=== PATIENT | female | born 1975 | race Hispanic/Latino ===

== ENCOUNTER 2021-06-05 20:51 | Emergency (ER) | payer SELFPAY ==
[~2021-06-05 20:51] MED LIST: Iopamidol-370 76% 500 ML 1 ML ONE
[2021-06-05 22:00] LABS: Bilirubin Negative (Negative); Blood, Urine Negative (Negative); Clarity Clear (Clear); Glucose, Urine (Dipstick) Normal (Negative); Ketone, Urine Negative (Negative); Leukocyte Negative Leu/uL (Negative); Nitrite Negative (Negative); Protein, Urine (Dipstick) Negative (Neg-Trace); Specific Gravity, Urine 1.013 (1.002-1.036); Urobilinogen Normal mg/dL (Less than 2)
[2021-06-05 22:04] LABS: #Basophils 0.1 thou/uL (0.0-0.2); #Lymphocytes 1.5 thou/uL (1.20-3.40); #Monocytes 0.4 thou/uL (0.11-0.59); #Neutrophils 6.9 thou/uL (1.40-6.50); %Basophils 0.6 % (0.0-1.0); %Eosinophils 0.4 % (0.0-10.0); %Neutrophils 76.9 % (42.0-75.0); Mean Corpuscular HGB CONC 34.3 g/dL (32.0-36.0); Mean Corpuscular Hemoglobin 31.6 pg (27.0-31.0); Mean Corpuscular Volume 92.2 fL (78.0-98.0); Mean Platelet Volume 7.7 fL (7.4-10.4); Platelet Count 275 thou/uL (130-400); RBC Distribution Width 14.4 % (11.5-14.5); White Blood Cell (WBC) Count 8.9 thou/uL (4.8-10.8)
[2021-06-05 22:10] LABS: BHCG - Serum Negative (NEGATIVE); Pregs Control Background? CLEAR/WHITE (CLR/WHITE); Pregs Control Bar Appear? YES (CONTROL BAR)
[2021-06-05] MEDS ORDERED: Ondansetron PF 4 MG/2 ML Vial ONE (22:17)
[2021-06-05] MEDS ORDERED: Morphine 4 MG/ML VIAL ONE (22:17)
[2021-06-05 22:24] LABS: ALT (SGPT) 17 U/L (8-55); AST (SGOT) 24 U/L (5-34); Albumin 4.5 g/dL (3.5-5.0); Alkaline Phosphatase 63 U/L (40-110); Anion Gap 10 mmol/L (10-20); BUN (Urea Nitrogen) 11 mg/dL (7.0-18.7); Bilirubin, Total 0.7 mg/dL (0.2-1.2); Calc. Creatinine Clearance 0 mL/min (70-130); Calcium 9.3 mg/dL (7.8-10.44); Carbon Dioxide 28 mmol/L (22-29); Chloride 103 mmol/L (98-107); Globulin 3.9 g/dL (2.4-3.5); Glucose 107 mg/dL (70-105); Lipase 34 U/L (8-78); Potassium 3.6 mmol/L (3.5-5.1); Protein, Total 8.4 g/dL (6.0-8.3); Sodium 137 mmol/L (136-145)
[2021-06-05] MEDS ORDERED: Ketorolac Tromethamine 30 MG/ML VIAL ONE (23:33)
[2021-06-06] MEDS ORDERED: Ondansetron PF 4 MG/2 ML Vial ONE (01:11)
== END 2021-06-06 01:35 | disposition home or self-care (01) ==
LOC: ERS 20:51
DX: R10.11 Right upper quadrant pain (principal)
CPT/HCPCS: 36415; 74177; 76705; 80053; 81003; 83690; 84703; 85025; 96374; 96375; 96376; J1885; J2270; J2405

== ENCOUNTER 2021-09-17 00:18 | Observation (INO) | payer SELFPAY ==
[2021-09-17] MEDS ORDERED: Aspirin Chewable 81 MG TAB ONE (00:46)
[2021-09-17 01:03] LABS: #Basophils 0.1 thou/uL (0.0-0.2); #Eosinphils 0.2 thou/uL (0.0-0.7); #Lymphocytes 2.3 thou/uL (1.20-3.40); #Monocytes 0.6 thou/uL (0.11-0.59); #Neutrophils 4.3 thou/uL (1.40-6.50); %Basophils 0.8 % (0.0-1.0); %Eosinophils 2.1 % (0.0-10.0); %Lymphocytes 31.2 % (21.0-51.0); %Monocytes 8.3 % (0.0-10.0); %Neutrophils 57.6 % (42.0-75.0); Hemoglobin 11.9 g/dL (12.0-16.0); Mean Corpuscular Hemoglobin 27.1 pg (27.0-31.0); Mean Corpuscular Volume 84.9 fL (78.0-98.0); Mean Platelet Volume 7.9 fL (7.4-10.4); Platelet Count 330 thou/uL (130-400); White Blood Cell (WBC) Count 7.4 thou/uL (4.8-10.8)
[2021-09-17 01:21] LABS: ALT (SGPT) 76 U/L (8-55); AST (SGOT) 46 U/L (5-34); Albumin 4.5 g/dL (3.5-5.0); Alkaline Phosphatase 164 U/L (40-110); Anion Gap 10 mmol/L (10-20); BUN (Urea Nitrogen) 11 mg/dL (7.0-18.7); Bilirubin, Total 0.6 mg/dL (0.2-1.2); Calc. Creatinine Clearance 0 mL/min (70-130); Calcium 9.2 mg/dL (7.8-10.44); Carbon Dioxide 25 mmol/L (22-29); Chloride 106 mmol/L (98-107); Globulin 3.1 g/dL (2.4-3.5); Glucose 112 mg/dL (70-105); Lipase 40 U/L (8-78); Potassium 3.9 mmol/L (3.5-5.1); Protein, Total 7.6 g/dL (6.0-8.3); Sodium 137 mmol/L (136-145)
[2021-09-17 03:30] VITALS: BMI 25.4
[2021-09-17 04:44] LABS: Troponin I Less than 0.010 ng/mL (< 0.028)
[2021-09-17 06:40] LABS: Troponin I Less than 0.010 ng/mL (< 0.028)
[2021-09-17] MEDS ORDERED: Acetaminophen 325 MG TAB PO SCH (07:15)
[2021-09-17] MEDS ORDERED: Ondansetron PF 4 MG/2 ML Vial IVP PRN (08:14)
[2021-09-17] MEDS ORDERED: Acetaminophen 325 MG TAB PO PRN (08:14)
[2021-09-17] MEDS ORDERED: ADENOSINE 60 MG/20 ML VIAL ONE (08:50)
[2021-09-17] MEDS ORDERED: Aspirin 81 mg Enteric Coated Tablet PO SCH (09:00)
[2021-09-17] MEDS ORDERED: Non-Formulary Item 1 EACH (Levothyroxine Sodium [Levothyroxine] 100 MCG Capsule) PO SCH (09:00)
[2021-09-17] MEDS ORDERED: Atorvastatin Calcium 20 MG TAB PO SCH ×2 (09:00→21:00)
[2021-09-17] MEDS ORDERED: Enoxaparin Sodium 40 MG/0.4 ML SYRINGE SC SCH (09:00)
[2021-09-17 11:46] LABS: SARS-CoV-2 PCR by NAA Not Detected (NotDetected)
[2021-09-17 16:15] VITALS: BP 106/57; TEMP 98.1
[2021-09-18] MEDS ORDERED: Levothyroxine Sodium 100 MCG TAB PO SCH (06:00)
== END 2021-09-17 17:25 | disposition home or self-care (01) ==
LOC: ERS 00:18 → 2SW 02:21
PROVIDERS: ADMIT Student in an Organized Health Care Education/Training Program; ATTEND Internal Medicine
DX: R07.89 Other chest pain (principal); R79.89 Other specified abnormal findings of blood chemistry; E78.5 Hyperlipidemia, unspecified; E03.9 Hypothyroidism, unspecified; Z79.890 Hormone replacement therapy; Z79.899 Other long term (current) drug therapy; Z20.822 Contact with and (suspected) exposure to COVID-19
CPT/HCPCS: 36415; 71045; 78452; 80053; 83690; 84484; 85025; 85379; 93005; 93017; 96372; A9500; G0378; J0153; J1650; U0003; U0005

== ENCOUNTER 2023-10-28 08:12 | Day surgery (SDC) | payer OTHER ==
[2023-10-27 09:56] VITALS: BMI 25.9
[2023-10-28] MEDS ORDERED: Lidocaine 1% PF 5 ML VIAL ONE (08:15)
[2023-10-28] MEDS ORDERED: PROPOFOL 40 ML ONE (08:15)
[2023-10-28] MEDS ORDERED: PHENYLEPHRINE-NS 100 MCG/ML 10 ML SYRINGE ONE (11:48)
[2023-10-28] MEDS ORDERED: fentaNYL 50 mcg/mL 1 mL Vial ONE (12:39)
== END 2023-10-28 14:54 | disposition home or self-care (01) ==
LOC: ULT 08:12
PROVIDERS: ATTEND Internal Medicine Gastroenterology
PROC: 0DJD8ZZ Inspection of Lower Intestinal Tract, Via Natural or Artificial Opening Endoscopic (ICD-10-PCS; principal; 2023-10-28)
DX: Z12.11 Encounter for screening for malignant neoplasm of colon (principal); K57.30 Diverticulosis of large intestine without perforation or abscess without bleeding; K64.9 Unspecified hemorrhoids; E03.9 Hypothyroidism, unspecified; E78.5 Hyperlipidemia, unspecified; Z91.040 Latex allergy status; Z88.8 Allergy status to other drugs, medicaments and biological substances; Z91.048 Other nonmedicinal substance allergy status
CPT/HCPCS: 76700; J2704; J3010

== ENCOUNTER 2023-11-02 08:13 | Outpatient (CLI) | payer OTHER | END 2023-11-02 08:14 | disposition home or self-care (01) | LOC: SCSMRI 08:13 | PROVIDERS: ATTEND Family Medicine | DX: R51.9 Headache, unspecified (principal) | CPT/HCPCS: 70553 ==